=== PATIENT | male | born 1950 | race Caucasian/White ===

== ENCOUNTER 2023-04-13 11:18 | Inpatient (IN) ==
[2023-04-13] MEDS ORDERED: IOPAMIDOL 100 ML BOTTLE IV ONE (11:19)
[2023-04-13] MEDS ORDERED: 0.9 % SODIUM CHLORIDE 1,000 ML IV ONE ×2 (11:42→13:39)
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
[2023-04-13 12:19] LABS: POC Calcium, Ionized 1.24 (1.16-1.32); POC Creatinine 0.7 (0.6-1.2); POC Potassium 4.4 (3.3-5.1)
[2023-04-13 13:18] LABS: Basophils # (Auto) 0.03 K/mcL (0.00-0.30); Basophils % (Auto) 0.2 % (0.0-2.0); Eosinophils # (Auto) 0.01 K/mcL (0.00-0.70); Eosinophils % (Auto) 0.1 % (0.0-7.0); Hematocrit 30.9 % (40.1-51.0); Hemoglobin 9.6 g/dL (13.7-17.5); Lymphocytes # (Auto) 0.47 K/mcL (1.50-4.80); Lymphocytes % (Auto) 3.4 % (15.5-49.0); Mean Cell Volume 81.7 fL (80.0-100.0); Mean Corpuscular HGB Conc 31.1 g/dL (31.0-36.0); Mean Platelet Volume 11.1 fL (8.8-12.5); Monocytes # (Auto) 0.45 K/mcL (0.10-0.90); Monocytes % (Auto) 3.3 % (1.0-12.0); Neutrophils % (Auto) 91.9 % (38.0-78.0); Platelet Count 350 K/mcL (140-440); RBC 3.78 M/mcL (4.63-6.08); WBC 13.8 K/mcL (4.5-11.0)
[2023-04-13 13:27] LABS: Erythrocyte Sedimentation Rate 89 mm/hr (0-20)
--- NOTE | 2023-04-13 14:52 | Cat Scan Report ---
INDICATION: sacral wound with maggots r/o osteo/abscess COMPARISON: None. TECHNIQUE: Axial images were obtained through the pelvis. Sagittally and coronally reformatted images. 80ml Isovue 370 injected intravenously. Oral contrast material was not administered FINDINGS: There is a large soft tissue wound in the inferior left gluteal region. There is exposed left ischium. There is bone destruction and extensive sclerosis. There is periosteal new bone formation. Appearance is consistent with osteomyelitis. There are gas bubbles within the soft tissues. There is gas which tracks posteriorly toward the left thigh. Findings are consistent with gas gangrene. There are thickened soft tissues in the left side of the perineum extending to the base of the scrotum. There is a left hip joint effusion. Septic left hip is possible. There is no acetabular or femoral head destruction. Sacrum is negative. Right hemipelvis is negative. There is no intrapelvic abnormality. There is no free fluid. No intrapelvic abscess. Urinary bladder is not distended. There is diffuse wall thickening. A discrete mass is not identified. There is a small gas bubble within the urinary bladder lumen. If this patient has not been instrumented cystitis with gas-forming organism is possible. There is no adjacent colon to suggest colovesical fistula. IMPRESSION: 1. Large open left inferior gluteal wound 2. Exposed ischium with bone destruction, periosteal new bone formation, and extensive sclerosis. Appearance is consistent with osteomyelitis 3. Soft tissue gas bubbles in the inferior gluteal region and posterior thigh. Appearance is consistent gas gangrene. 4. No well-defined abscess 5. Fluid within the left hip joint space. Septic joint is possible. There is no bone destruction 6. Diffusely thickened bladder wall. No discrete mass. Single intraluminal gas bubble 7. Thickened soft tissues in the perineum and base of the scrotum. No soft tissue gas The exam was performed using radiation dose optimization techniques including, but not limited to, automated exposure control, adjustment of the mA and/or kV according to patient size and use of iterative reconstruction technique. Interpreted and Authenticated by: Bill Workman 04/13/23
[2023-04-13] MEDS ORDERED: VANCOMYCIN 1,000 MG in 0.9 % SODIUM CHLORIDE 250 ML IV ONE (16:58)
[2023-04-13] MEDS ORDERED: PIPERACILLIN SODIUM/TAZOBACTAM 3.375 GM in DEXTROSE 5% IN WATER 50 ML IV ONE (16:58)
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
[2023-04-13] MEDS ORDERED: PIPERACILLIN SODIUM/TAZOBACTAM 3.375 GM in DEXTROSE 5% IN WATER 50 ML IV SCH (19:30)
--- NOTE | 2023-04-13 20:03 | General Surgery Consult Note ---
HPI Date of Consult Consult Date: 04/13/23 Requesting physician: Chapis Hinson Primary Care Provider: Bonnie Carbajal NP Consult Narrative Patient Information: Note initiated : 04/13/23 at 8:02 pm Service Date, if different from initiated Date: [] Patient: Chay Cole 73 y/o M admitted on for buttox wound. Chief Complaint: [] Chay is seen in consultation this afternoon after presenting to the ER feeling poorly and with concerns about a neglected and possibly infected Sacrococcygeal Wound. He has a mid thoracic paraplegia and has undergone Bilateral Lower Extremity Amputation. He currently lives in his own domicile with some form of home health visitation. He has had a longstanding Sacrococcygeal Decubitus Pressure Ulceration and has undergone past Diverting Colostomy. He was seen in the wound clinic this past week regarding the wound. On presentation today, his wound appeared neglected with both foul odor and drainage and there is longstanding exposed bone. On CT of the area, there was evidence of Osteomyelitis and concern about air bubbles seen deeper in the wound. His WBC is elevated and he has felt poorly. He is insensate in the area. Chief complaint: Sacrococcygeal Decubitus Ulceration Reason for consult: Infected Sacrococcygeal Decubitus Ulceration cc:: CC: Constitutional Additional comments: has not felt well recently EENT Additional comments: no recent change Additional comments: no recent ENT changes Cardiovascular Additional comments: no chest pain Respiratory Additional comments: denies current SOB or cough Gastrointestinal Additional comments: ostomy has been functional, no new issues Genitourinary Additional comments: no changes - wears depends, does not have indwelling shen or suprapubic at this time Integumentary Additional comments: see HPI Neurological Additional comments: no changes Hematologic/Lymphatic Additional comments: currently on Eliquis PFSH PFSH All Active Problems Cough (Acute) Decubitus ulcer of left ischial area (Acute) Social History smoking status: Never smoker MEDS/ALLERGIES Home Medications and Allergies Home Medications Medication Instructions Recorded Confirmed Type apixaban 5 mg tablet (Eliquis) 5 mg PO BID 04/09/23 04/13/23 History diazepam 5 mg tablet 5 mg PO Q6 04/09/23 04/13/23 History doxycycline hyclate 100 mg capsule 100 mg PO BID 7 days #14 caps 04/09/23 04/13/23 Rx losartan 25 mg tablet 12.5 mg PO QDAY 04/09/23 04/13/23 History metformin 500 mg tablet 250 mg PO BID 04/09/23 04/13/23 History metoprolol succinate 25 mg 25 mg PO QDAY 04/09/23 04/13/23 History tablet,extended release 24 hr ondansetron HCl 4 mg tablet 4 mg PO PRN PRN Nausea 04/09/23 04/13/23 History Adults Multivitamin 1 tab .Route DAILY 04/13/23 04/13/23 History thiamine HCl (vitamin B1) 100 mg 100 mg PO QDAY 04/13/23 04/13/23 History tablet Allergies Allergy/AdvReac Type Severity Reaction Status Date / Time bacitracin Allergy Severe Anaphylaxis Verified 04/13/23 11:19 Physical Examination Vital Signs Vital signs: Temp Pulse Resp BP Pulse Ox O2 Del Method 97.9 F 84 17 82/57 97 Room Air 04/13/23 11:19 04/13/23 16:16 04/13/23 19:48 04/13/23 19:48 04/13/23 16:16 04/13/23 11:19 General physical appearance General physical exam: other (fully conversant and alert, appears non toxic ) Eyes Eye exam: normal ocular movement Head Head exam IM: Present atraumatic, normal inspection and normocephalic Cardiovascular Cardiovascular exam IM: Present RRR Respiratory Respiratory exam: normal respiratory effort Abdomen Abdomen: Present soft and non tender Rectum Rectum: Present other (the area of left ischial ulceration is examined and an abscess is drained bluntly with digital evacuation and packing of the corresponding area seen on CT and the area is packed open with damp gauze ) Integumentary Integumentary: Present other (normal appearing intact skin ) Neurologic Neurologic: Present other (grossly intact ) Results Labs 04/13/23 12:08 Labs: Abnormal lab results 04/13/23 04/13/23 04/13/23 Range/Units 12:08 12:08 12:08 WBC 13.8 H (4.5-11.0) K/mcL RBC 3.78 L (4.63-6.08) M/mcL Hgb 9.6 L (13.7-17.5) g/dL Hct 30.9 L (40.1-51.0) % POC Hct (41-55) MCH 25.4 L (26.0-34.0) pg RDW 15.0 H (11.5-14.5) % Immature Gran % (Auto) 1.1 H (0.0-0.5) % Neut % (Auto) 91.9 H (38.0-78.0) % Lymph % (Auto) 3.4 L (15.5-49.0) % Lymph # (Auto) 0.47 L (1.50-4.80) K/mcL Immature Gran # 0.15 H (0.00-0.05) K/mcl Absolute Neutrophils 12.69 H (1.80-8.00) K/mcL ESR 89 H (0-20) mm/hr POC VBG pH (7.32-7.42) POC VBG pCO2 at Temp (41-51) POC Sodium (133-145) POC Chloride (96-108) POC Anion Gap (8.0-16.0) POC BUN (6-20) POC Glucose (70-105) C-Reactive Protein 23.60 H (0.03-0.80) mg/dL Procalcitonin 0.34 H (<0.10) ng/mL 04/13/23 04/13/23 Range/Units 12:11 12:14 WBC (4.5-11.0) K/mcL RBC (4.63-6.08) M/mcL Hgb (13.7-17.5) g/dL Hct (40.1-51.0) % POC Hct 30.0 L (41-55) MCH (26.0-34.0) pg RDW (11.5-14.5) % Immature Gran % (Auto) (0.0-0.5) % Neut % (Auto) (38.0-78.0) % Lymph % (Auto) (15.5-49.0) % Lymph # (Auto) (1.50-4.80) K/mcL Immature Gran # (0.00-0.05) K/mcl Absolute Neutrophils (1.80-8.00) K/mcL ESR (0-20) mm/hr POC VBG pH 7.45 H (7.32-7.42) POC VBG pCO2 at Temp 36.5 L (41-51) POC Sodium 129 L (133-145) POC Chloride 94 L (96-108) POC Anion Gap 17.0 H (8.0-16.0) POC BUN 31 H (6-20) POC Glucose 305 H (70-105) C-Reactive Protein (0.03-0.80) mg/dL Procalcitonin (<0.10) ng/mL All other labs normal. A/P Assessment and plan (1) Decubitus ulcer of left ischial area: Assessment and plan: Neglected Pressure Ulceration of the Sacrococcygeal Ischial The wound will benefit from Open Debridement in the OR and we'll plan on that for him tomorrow AM, sooner if need be for any reason. Risks, benefits, potential complications and alternative treatment options are all discussed and reviewed at length I don't strongly suspect gangrene despite CT findigns as I was able to follow an open tract down to an abscess in that area and that almost certainly the source of air/gas in the area and abscess was evacuated and the wound packed open but agree with need for wound debridement Recommend broad spectrum IV ABs along with aggressive fluid resuscitation as well and hold Eliquis for surgery tomorrow Status: Acute Time Spent With Patient Time: Total time spent is greater than 50% in coordination of care (as documented) at patient's floor/unit and/or counseling patient:
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
[2023-04-13] MEDS ORDERED: DEXTROSE 50% 50 ML VIAL IV PRN (21:46)
[2023-04-13] MEDS ORDERED: LACTULOSE 20 GM/30 ML ORAL.SOL PO PRN (21:46)
[2023-04-13] MEDS ORDERED: HYDROcodone/APAP 5/325MG TABLET PO PRN (21:46)
[2023-04-13] MEDS ORDERED: SENNOSIDES 1 TABLET PO PRN (21:46)
[2023-04-13] MEDS ORDERED: ONDANSETRON 4 MG/2 ML VIAL IV PRN (21:46)
[2023-04-13] MEDS ORDERED: ACETAMINOPHEN 325 MG TABLET PO PRN (21:46)
[2023-04-13] MEDS: 0.9 % SODIUM CHLORIDE 10 ML SYRINGE IV SCH (22:00)
[2023-04-13] MEDS ORDERED: VANCOMYCIN 500 MG in 0.9 % SODIUM CHLORIDE 100 ML IV ONE (22:00)
[2023-04-13 22:20] LABS: ALT/SGPT 63 U/L (<40); AST/SGOT 49 U/L (<40); Albumin 2.3 gm/dL (3.2-5.2); Albumin/Globulin Ratio 0.6 (1.0-2.3); Alkaline Phosphatase 84 U/L (39-117); Bilirubin,Total 0.7 mg/dL (0.1-1.0); Blood Urea Nitrogen 26 mg/dL (8-23); Calcium 9.7 mg/dL (8.6-10.4); Carbon Dioxide 19 mmol/L (22-30); Chloride 93 mmol/L (96-108); Globulin 4.1 gm/dL (2.2-3.7); Glomerular Filtration Rate 90; Glucose 292 mg/dL (70-105)
[2023-04-13 22:37] LABS: Estimated Average Glucose(eAG) 157 mg/dL; Hemoglobin A1C 7.1 % Hgb (4.0-6.0)
[2023-04-13] MEDS: DOCUSATE SODIUM 100 MG CAPSULE PO SCH (23:25)
[2023-04-14] MEDS: CLINDAMYCIN IN 0.9 % SOD CHLOR 900 MG/50 ML BAG IV SCH ×2 (00:07→05:03)
[2023-04-14] MEDS: INSULIN LISPRO 1 UNIT/0.01 ML UNIT SQ SCH ×4 (00:32→18:07)
[2023-04-14] MEDS: LACTATED RINGERS 1,000 ML IV SCH ×3 (01:09→17:22)
[2023-04-14] MEDS: PIPERACILLIN SODIUM/TAZOBACTAM 3.375 GM in DEXTROSE 5% IN WATER 50 ML IV SCH ×4 (02:42→17:22)
[2023-04-14] MEDS: 0.9 % SODIUM CHLORIDE 10 ML SYRINGE IV SCH ×3 (06:07→21:00)
--- NOTE | 2023-04-14 06:33 | XRay Report ---
INDICATION: cough TECHNIQUE: AP portable upright chest x-ray COMPARISON: Previous chest x-ray dated 04/09/2023 FINDINGS:There is a linear lucency at the left lung base. This appears to be artifactual and not related to pneumothorax. Lungs:Lungs are negative. No focal pulmonary parenchymal infiltrate or mass Heart, vascular:No significant cardiomegaly. Pulmonary vascularity is normal. No pulmonary edema or pulmonary congestion Mediastinum, deja:No mediastinal widening. No hilar mass Pleura:No pleural fluid. No pleural-based mass or calcification Skeletal:Degenerative joint disease in both shoulders IMPRESSION: No acute or focal abnormality Interpreted and Authenticated by: Bill Workman 04/14/23
[2023-04-14] MEDS ORDERED: NOREPINEPHRINE BITARTRATE 4 MG/4 ML VIAL IV ONE (07:10)
[2023-04-14 07:24] LABS: Basophils # (Auto) 0.01 K/mcL (0.00-0.30); Basophils % (Auto) 0.1 % (0.0-2.0); Eosinophils # (Auto) 0.06 K/mcL (0.00-0.70); Eosinophils % (Auto) 0.7 % (0.0-7.0); Hematocrit 28.9 % (40.1-51.0); Hemoglobin 8.9 g/dL (13.7-17.5); Lymphocytes # (Auto) 0.34 K/mcL (1.50-4.80); Mean Cell Volume 82.1 fL (80.0-100.0); Mean Corpuscular HGB Conc 30.8 g/dL (31.0-36.0); Mean Platelet Volume 10.6 fL (8.8-12.5); Monocytes % (Auto) 3.6 % (1.0-12.0); Neutrophils % (Auto) 90.6 % (38.0-78.0); Platelet Count 402 K/mcL (140-440); RBC 3.52 M/mcL (4.63-6.08); Red Cell Distribution Width 15.3 % (11.5-14.5); WBC 8.4 K/mcL (4.5-11.0)
[2023-04-14] MEDS ORDERED: GENTAMICIN SULFATE 800 MG/20 ML VIAL IR ONE (07:27)
[2023-04-14] MEDS ORDERED: SUGAMMADEX SODIUM 200 MG/2 ML VIAL IV ONE (07:37)
[2023-04-14] MEDS ORDERED: PROPOFOL 200 MG/20 ML VIAL IV ONE (07:37)
[2023-04-14] MEDS ORDERED: ROCURONIUM 10 MG/ML ML IV ONE (07:37)
[2023-04-14] MEDS ORDERED: PHENYLephrine 1 MG/10 ML SYRINGE (ANEST) ONE (07:37)
[2023-04-14 08:00] LABS: ALT/SGPT 46 U/L (<40); AST/SGOT 37 U/L (<40); Albumin 1.9 gm/dL (3.2-5.2); Albumin/Globulin Ratio 0.5 (1.0-2.3); Alkaline Phosphatase 72 U/L (39-117); Bilirubin,Total 0.4 mg/dL (0.1-1.0); Blood Urea Nitrogen 19 mg/dL (8-23); Calcium 8.5 mg/dL (8.6-10.4); Carbon Dioxide 20 mmol/L (22-30); Chloride 99 mmol/L (96-108); Globulin 3.7 gm/dL (2.2-3.7); Glomerular Filtration Rate 101; Glucose 195 mg/dL (70-105)
[2023-04-14] MEDS ORDERED: VANCOMYCIN 1,000 MG in 0.9 % SODIUM CHLORIDE 250 ML IV ONE (08:00)
--- NOTE | 2023-04-14 08:16 | XRay Report ---
INDICATION: bilateral hip septic joint TECHNIQUE: Informed consent was obtained. Bilateral hip aspirations performed using fluoroscopic guidance. 53 seconds fluoroscopy and 10.69 mGy exposure utilized. Betadine skin cleansing performed. 18-gauge spinal needles were placed within the hip joint spaces. Approximately 5 mL cloudy yellow fluid was removed from the right hip joint space. Approximately 5 mL blood fluid or shelley blood was removed from the left hip joint space. Both specimens were taken to the laboratory. IMPRESSION: Aspiration of both hip joint spaces utilizing fluoroscopic guidance Interpreted and Authenticated by: Bill Workman 04/14/23
[2023-04-14] MEDS ORDERED: VANCOMYCIN PER PHARMACY IV SCH (09:00)
[2023-04-14] MEDS ORDERED: IPRATROPIUM/ALBUTEROL 3 ML AMPUL.NEB NEB PRN (09:45)
[2023-04-14] MEDS ORDERED: ONDANSETRON 4 MG/2 ML VIAL IV PRN (09:45)
[2023-04-14] MEDS ORDERED: fentaNYL 100 MCG/2 ML VIAL IV PRN (09:45)
[2023-04-14] MEDS ORDERED: NALOXONE HCL 0.4 MG/ML VIAL IV PRN (09:45)
--- NOTE | 2023-04-14 10:05 | XRay Report ---
INDICATION: Central Line Placement TECHNIQUE: AP chest x-ray COMPARISON: Previous chest x-ray dated 04/13/2023 FINDINGS:Right-sided central venous catheter with its tip projected over the right lung apex. Anatomic location is not determined based upon this single view chest x-ray. No pneumothorax. No focal pulmonary parenchymal abnormality. No evidence for congestive heart failure IMPRESSION: Right central venous catheter tip is projected over the right lung apex. Anatomic location is not certain Interpreted and Authenticated by: Bill Workman 04/14/23
[2023-04-14] MEDS: CLINDAMYCIN 900 MG in DEXTROSE 5% IN WATER 50 ML IV SCH ×2 (11:08→17:22)
[2023-04-14] MEDS: VANCOMYCIN 1,000 MG in 0.9 % SODIUM CHLORIDE 250 ML IV SCH ×2 (11:08→22:00)
[2023-04-14] MEDS: METOPROLOL SUCCINATE 25 MG TAB.XL.24H PO SCH (11:09)
[2023-04-14] MEDS: DOCUSATE SODIUM 100 MG CAPSULE PO SCH ×2 (11:10→21:55)
[2023-04-14] MEDS: THIAMINE 100 MG TABLET PO SCH (11:11)
[2023-04-14 12:09] LABS: Crystals,Body Fluid None Seen (None Seen)
[2023-04-14 12:12] LABS: Appearance,Synovial Fluid Cloudy; Color,Synovial Fluid Yellow; Lymphocytes,Synovial Fluid 5 %; Neutrophils,Synovial Fluid 94 % (0-25); Nucleated Cells,Synovial Fld 201 /cumm; Other Cells,Synovial Fluid 1 %
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
[2023-04-14] MEDS ORDERED: ALBUMIN HUMAN 12.5 GM/50 ML VIAL IV SCH (14:33)
[2023-04-14] MEDS ORDERED: LACTATED RINGERS 500 ML IV ONE (14:34)
[2023-04-14] MEDS ORDERED: MAGNESIUM HYDROXIDE 30 ML ORAL.SUSP PO PRN (19:26)
--- NOTE | 2023-04-14 19:26 | Brief Operative Note ---
Brief Operative Note Date of procedure: 04/14/23 Pre-op diagnosis: Infected Left Sacro Ischial Pressure Ulceration Post-op diagnosis: same Procedure: Examination Under Anesthesia with Drainage and Debridement of Left Infected Sacro Ischial Pressure Ulceration Grafts/Implants: No Anesthesia: GETA Findings: Moderate infection and Necrotic debris of Infected Left Sacro Ischial Pressure Ulceration Complications: none Surgeon: Sim Whiteside Estimated blood loss (cc): 25 Specimens Removed/Pathology: other (1. Swabs for Gram Stain and Culture 2. Tissue sent for Gram Stain and Culture ) Condition: stable Disposition: PACU
[2023-04-14] MEDS: POLYETHYLENE GLYCOL 3350 17 GM PACKET PO SCH (21:55)
[2023-04-14] MEDS: MELATONIN 3 MG TABLET PO SCH (21:56)
[2023-04-14] MEDS: DIAZEPAM 5 MG TABLET PO PRN (21:56)
[2023-04-15] MEDS: INSULIN LISPRO 1 UNIT/0.01 ML UNIT SQ SCH ×4 (00:48→18:23)
[2023-04-15] MEDS: CLINDAMYCIN 900 MG in DEXTROSE 5% IN WATER 50 ML IV SCH ×4 (00:50→18:12)
[2023-04-15] MEDS: PIPERACILLIN SODIUM/TAZOBACTAM 3.375 GM in DEXTROSE 5% IN WATER 50 ML IV SCH ×4 (00:50→18:12)
[2023-04-15] MEDS: LACTATED RINGERS 1,000 ML IV SCH ×2 (02:05→06:40)
[2023-04-15 06:46] LABS: Basophils # (Auto) 0.02 K/mcL (0.00-0.30); Basophils % (Auto) 0.2 % (0.0-2.0); Eosinophils # (Auto) 0.14 K/mcL (0.00-0.70); Eosinophils % (Auto) 1.4 % (0.0-7.0); Hematocrit 27.7 % (40.1-51.0); Hemoglobin 8.4 g/dL (13.7-17.5); Lymphocytes # (Auto) 0.87 K/mcL (1.50-4.80); Lymphocytes % (Auto) 8.7 % (15.5-49.0); Mean Cell Volume 83.2 fL (80.0-100.0); Mean Corpuscular HGB Conc 30.3 g/dL (31.0-36.0); Mean Platelet Volume 10.4 fL (8.8-12.5); Monocytes # (Auto) 0.69 K/mcL (0.10-0.90); Monocytes % (Auto) 6.9 % (1.0-12.0); Neutrophils % (Auto) 81.7 % (38.0-78.0); Platelet Count 383 K/mcL (140-440); RBC 3.33 M/mcL (4.63-6.08); Red Cell Distribution Width 15.6 % (11.5-14.5)
[2023-04-15 07:11] LABS: ALT/SGPT 33 U/L (<40); AST/SGOT 30 U/L (<40); Albumin 1.9 gm/dL (3.2-5.2); Albumin/Globulin Ratio 0.6 (1.0-2.3); Alkaline Phosphatase 59 U/L (39-117); Bilirubin,Direct < 0.2 mg/dL (0-0.3); Bilirubin,Total 0.2 mg/dL (0.1-1.0); Blood Urea Nitrogen 11 mg/dL (8-23); Calcium 7.9 mg/dL (8.6-10.4); Carbon Dioxide 23 mmol/L (22-30); Chloride 101 mmol/L (96-108); Glomerular Filtration Rate 101; Glucose 177 mg/dL (70-105); Lactate Dehydrogenase 173 U/L (135-225); Phosphorous 3.1 mg/dL (2.5-4.5); Triglycerides 58 mg/dL (<150); Uric Acid 2.7 mg/dL (2.5-8.0)
--- NOTE | 2023-04-15 08:06 | EKG ---
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 Measurements Intervals [place] Rate: 72 P: 118 VA: 116 QRS: 6 QRSD: 82 T: 38 QT: 424 QTc: 463 Interpretive Statements Sinus rhythm Atrial premature complex Electronically Signed On 04-15-2023 8:06:49 PDT by Bill Chandler M.D. /store/[email or web address]/[id number].pdf
[2023-04-15] MEDS ORDERED: MAGNESIUM SULFATE 2 GM/50 ML BAG IV ONE (08:10)
--- NOTE | 2023-04-15 08:10 | History and Physical Report ---
DATE OF ADMISSION: 04/13/2023 CHIEF COMPLAINT: Left infected decubitus pressure ulcer over the buttocks and ischium. HISTORY OF PRESENT ILLNESS: The patient is a previous bilateral amputee who has also had a history of a paraplegia. The patient recently moved to the area from [place] after not feeling like he had good care at his nursing facility. He was living at home when a neighbor, who does help take care of him, noticed that he had maggots coming from his decubitus pressure ulcer. He was brought to the ED. The patient has no other complaints at this time. He was previously taken to the OR by General Surgery for wound debridement and cleaning. Orthopedics was consulted for left hip fluid found on CT. PAST SURGICAL HISTORY: Bilateral [id number] amputations. He also has undergone debridement for his decubitus pressure ulcer. VITAL SIGNS: Blood pressure 111/63, respiratory rate 37, heart rate 80, pulse rate 82 and pulse ox 98. PHYSICAL EXAMINATION: GENERAL: The patient is alert. He is in no acute distress. HEART: Regular. LUNGS: He does have some wheezing noted on auscultation. LOWER EXTREMITIES: Left lower extremity does show a previous [id number] amputation. The movement passively to the area does not increase pain. He has no sensation to the lower extremities. LABORATORY DATA: Currently, synovial fluid testing of the left hip joint neutrophil count is 94 indicating no infection at this time. RADIOLOGIC STUDIES: CT scan did show an increased amount of fluid in the hip joint. IMPRESSION: A decubitus pressure ulcer in a patient who had, so far, an incidental finding of increased fluid on the left hip joint. PLAN: At this time, Orthopedics will watch for continued testing from the synovial fluid from the hip joint drawn by Interventional Radiology. At this time, the cell count is negative, but we will wait for stains and cultures. If this does prove to be positive, the patient may require a left hip I and D for further treatment. The patient also may require this in the right hip as this was tested as well. The patient was agreeable to this plan. IRMA:randa Job ID: [id number] Doc ID: [id number] Lefty Villalobos PA-C
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
[2023-04-15] MEDS: DOCUSATE SODIUM 100 MG CAPSULE PO SCH ×2 (08:35→21:26)
[2023-04-15] MEDS: THIAMINE 100 MG TABLET PO SCH (08:35)
[2023-04-15] MEDS: APIXABAN 5 MG TABLET PO SCH ×2 (08:35→20:00)
[2023-04-15] MEDS: POLYETHYLENE GLYCOL 3350 17 GM PACKET PO SCH ×2 (08:36→19:05)
[2023-04-15] MEDS: METOPROLOL SUCCINATE 25 MG TAB.XL.24H PO SCH (10:06)
[2023-04-15] MEDS: 0.9 % SODIUM CHLORIDE 10 ML SYRINGE IV SCH ×2 (10:07→20:00)
[2023-04-15] MEDS: VANCOMYCIN 1,000 MG in 0.9 % SODIUM CHLORIDE 250 ML IV SCH ×2 (10:57→21:26)
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
[2023-04-15] MEDS: MELATONIN 3 MG TABLET PO SCH (20:01)
[2023-04-15] MEDS: DIAZEPAM 5 MG TABLET PO PRN (20:01)
--- NOTE | 2023-04-15 23:49 | General Surgery Progress Note ---
SUBJECTIVE Subjective Patient information: Note initiated : 04/15/23 at 11:45 am Service Date, if different from initiated Date: [] Patient: Chay Cole 73 y/o M admitted on 04/13/23 for buttox wound. Chief Complaint: [] Dressings in place, no significant issues with bleeding or other concerns Constitutional Vitals: Vital Signs Temp Pulse Resp BP Pulse Ox O2 Del Method O2 Flow Rate 98.4 F 70 22 122/56 97 Nasal Cannula 1 04/15/23 16:00 04/15/23 14:01 04/15/23 16:00 04/15/23 16:00 04/15/23 16:00 04/15/23 16:00 04/15/23 16:00 Period Temp Pulse Resp BP Sys/Palma Pulse Ox O2 Del Method O2 Flow Rate Last 24 Hr 98.4 F-100.5 F 70-98 21-38 82-141/44-76 95-99 Nasal Cannula- Nasal Cannula 1-2 Intake and Output 04/15/23 04/15/23 04/16/23 11:59 19:59 03:59 Intake Total 1464 912 Output Total 358 220 Balance 1106 692 Weight 173 lb 4.8 oz Patient Weight 04/16/23 03:59 Weight 173 lb 4.8 oz Intake & Output: Intake & Output 04/15/23 04/15/23 04/16/23 11:59 19:59 03:59 Intake Total 1464 912 Output Total 358 220 Balance 1106 692 Weight 173 lb 4.8 oz Intake: IV 1104 512 Cleocin 900 mg In Dextrose 5% 56 112 in Water 50 ml @ 100 mls/hr IV Q6H [facility] Rx#:[id number] Lactated Ringers 1,000 ml @ 75 998 mls/hr IV .[id number] [facility] Rx#: [id number] Zosyn 3.375 gm In Dextrose 5% 50 100 in Water 50 ml @ 100 mls/hr IV Q6H [facility] Rx#:[id number] Vancomycin 1,000 mg In Sodium 250 Chloride 0.9% 250 ml @ 250 mls/ hr IV Q12H [facility] Rx#:[id number] Oral 360 400 Output: Urine Catheter Amount 348 220 Stool 10 Other: Urine Appearance Clear Clear Urine Color Yellow Yellow Stool Size Small Stool Color Brown Stool Consistency Loose Exam: pleasantly conversant, non toxic, NAD Extremities Exam Additional comments: dressing in place, no active bleeding or other issue A/P Assessment and plan (1) Pressure ulcer: Assessment and plan: 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
[2023-04-16] MEDS: CLINDAMYCIN 900 MG in DEXTROSE 5% IN WATER 50 ML IV SCH ×4 (01:05→17:59)
[2023-04-16] MEDS: PIPERACILLIN SODIUM/TAZOBACTAM 3.375 GM in DEXTROSE 5% IN WATER 50 ML IV SCH ×5 (01:06→23:45)
[2023-04-16] MEDS: INSULIN LISPRO 1 UNIT/0.01 ML UNIT SQ SCH ×5 (01:08→20:54)
[2023-04-16] MEDS: DIAZEPAM 5 MG TABLET PO PRN ×2 (01:24→21:06)
[2023-04-16 06:36] LABS: Basophils # (Auto) 0.02 K/mcL (0.00-0.30); Basophils % (Auto) 0.2 % (0.0-2.0); Eosinophils # (Auto) 0.18 K/mcL (0.00-0.70); Eosinophils % (Auto) 1.8 % (0.0-7.0); Hematocrit 24.7 % (40.1-51.0); Hemoglobin 7.5 g/dL (13.7-17.5); Lymphocytes # (Auto) 0.92 K/mcL (1.50-4.80); Lymphocytes % (Auto) 9.2 % (15.5-49.0); Mean Cell Volume 83.2 fL (80.0-100.0); Mean Corpuscular HGB Conc 30.4 g/dL (31.0-36.0); Mean Platelet Volume 9.8 fL (8.8-12.5); Monocytes # (Auto) 0.68 K/mcL (0.10-0.90); Monocytes % (Auto) 6.8 % (1.0-12.0); Neutrophils % (Auto) 81.2 % (38.0-78.0); Platelet Count 326 K/mcL (140-440); RBC 2.97 M/mcL (4.63-6.08); Red Cell Distribution Width 15.7 % (11.5-14.5)
[2023-04-16 07:01] LABS: ALT/SGPT 25 U/L (<40); AST/SGOT 23 U/L (<40); Albumin 1.8 gm/dL (3.2-5.2); Albumin/Globulin Ratio 0.6 (1.0-2.3); Alkaline Phosphatase 58 U/L (39-117); Bilirubin,Direct < 0.2 mg/dL (0-0.3); Bilirubin,Total 0.2 mg/dL (0.1-1.0); Blood Urea Nitrogen 9 mg/dL (8-23); Calcium 8.3 mg/dL (8.6-10.4); Carbon Dioxide 26 mmol/L (22-30); Chloride 101 mmol/L (96-108); Glomerular Filtration Rate 95; Glucose 245 mg/dL (70-105); Lactate Dehydrogenase 98 U/L (135-225); Phosphorous 2.8 mg/dL (2.5-4.5); Triglycerides 58 mg/dL (<150); Uric Acid 2.2 mg/dL (2.5-8.0)
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
--- NOTE | 2023-04-16 08:16 | Operative Note ---
DATE OF OPERATION: 04/14/2023 DATE OF PROCEDURE: 04/14/2023 PREOPERATIVE DIAGNOSIS: Infected and necrotic sacroischial pressure ulceration. POSTOPERATIVE DIAGNOSIS: Infected and necrotic ischial, sacral ischial pressure ulceration. OPERATIVE PROCEDURE: 1. Examination under anesthesia. 2. Examination, debridement and washout of infected and necrotic sacroischial pressure ulceration. SURGEON: Sim Whiteside M.D. ANESTHESIA: General. POSITION: Prone. 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 He has had a longstanding exposed ischial tuberosity and ulceration and was brought into the Emergency Room on this admission with gross evidence of infection and evidence of perhaps some sepsis and gross contamination of the wound including maggots and feculent debris. We saw him in consultation and recommended proceeding to the operating room at some point for examination under anesthesia with debridement, washout, irrigation and hopefully ultimately placement of a VAC dressing. Risks, benefits, potential complications, and alternative treatment options were all discussed at length. He gave full informed consent and wished to undergo the procedure. DESCRIPTION OF PROCEDURE: The patient was taken to the OR and placed under general anesthesia and intubated. He was then placed in the prone position. All pressure sensitive areas were carefully padded by the entire OR team working together to position him comfortably and safely on the table. Once he was positioned properly, we then widely prepped and draped out the area of the obvious ulceration involving much of the left sacroischial region with exposed ischial tuberosity. Once the area was widely prepped and draped procedure, began with examination. He was found to have a substantial amount of tunneling in the posterior musculature of the left posterior upper leg and gluteal region down into the proximal thigh. We debrided extensive amounts of necrotic tissue and debris. Methods of debridement were cautery as well as utilization of a curette. After adequate debridement of all areas of necrotic debris and superficial slough, which I felt was actually only moderate, not as severe as initially feared, we then went ahead and utilized the pulse lavage to further cleanse the area. Once we felt that we had adequately debrided the area, We went ahead and debrided back the ischial tuberosity to healthy bleeding bony tissue as well in an effort to rid the area of superficial areas of osteomyelitis. Once this was complete, we then went ahead and unroofed the tract that was in the posterior musculature to further evacuate some additional necrotic debris out of this. Eventually, working over the course of roughly an hour or so, I felt that we performed a very extensive and thorough cleansing of the wound, trimmed away all visible necrotic tissue across the entire surface area, which was extensive and then packed the wound open with a Betadine-impregnated gauze and placed over dressings and this completed the procedure. PATHOLOGY: Culture swabs were sent x2 as well as a single tissue culture. FINDINGS: As discussed above. ESTIMATED BLOOD LOSS: 25-50 mL. DRAINS: None. WOUND STAGE: The stage of this pressure ulceration with exposed bone would be stage IV. METHOD OF DEBRIDEMENT: Utilization of both cautery and sharp debridement with a curette. COMPLICATIONS: None apparent. BW:randa Job ID: [id number] Doc ID: [id number] Sim Whiteside M.D.
[2023-04-16] MEDS: THIAMINE 100 MG TABLET PO SCH (09:20)
[2023-04-16] MEDS: APIXABAN 5 MG TABLET PO SCH ×2 (09:20→20:54)
[2023-04-16] MEDS: POLYETHYLENE GLYCOL 3350 17 GM PACKET PO SCH ×2 (09:20→20:54)
[2023-04-16] MEDS: 0.9 % SODIUM CHLORIDE 10 ML SYRINGE IV SCH ×2 (09:22→23:30)
[2023-04-16] MEDS: DOCUSATE SODIUM 100 MG CAPSULE PO SCH ×2 (09:22→20:48)
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
[2023-04-16] MEDS: METOPROLOL SUCCINATE 25 MG TAB.XL.24H PO SCH (11:10)
[2023-04-16] MEDS: VANCOMYCIN 1,000 MG in 0.9 % SODIUM CHLORIDE 250 ML IV SCH ×2 (12:14→22:21)
[2023-04-16] MEDS: 0.9 % SODIUM CHLORIDE 10 ML SYRINGE IV PRN ×3 (19:05→23:40)
[2023-04-16] MEDS: MELATONIN 3 MG TABLET PO SCH (20:54)
[2023-04-17] MEDS: CLINDAMYCIN 900 MG in DEXTROSE 5% IN WATER 50 ML IV SCH ×3 (00:12→10:55)
[2023-04-17] MEDS: 0.9 % SODIUM CHLORIDE 10 ML SYRINGE IV PRN ×2 (05:51→23:30)
[2023-04-17] MEDS: PIPERACILLIN SODIUM/TAZOBACTAM 3.375 GM in DEXTROSE 5% IN WATER 50 ML IV SCH ×4 (05:51→23:32)
[2023-04-17 06:57] LABS: Hematocrit 25.1 % (40.1-51.0); Hemoglobin 7.6 g/dL (13.7-17.5)
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
[2023-04-17] MEDS: INSULIN LISPRO 1 UNIT/0.01 ML UNIT SQ SCH ×4 (08:06→20:45)
[2023-04-17] MEDS: POLYETHYLENE GLYCOL 3350 17 GM PACKET PO SCH ×2 (08:52→20:45)
[2023-04-17] MEDS: THIAMINE 100 MG TABLET PO SCH (08:52)
[2023-04-17] MEDS: DOCUSATE SODIUM 100 MG CAPSULE PO SCH ×2 (08:52→20:35)
[2023-04-17] MEDS: APIXABAN 5 MG TABLET PO SCH ×2 (08:52→20:53)
[2023-04-17] MEDS: 0.9 % SODIUM CHLORIDE 10 ML SYRINGE IV SCH ×2 (08:52→22:12)
[2023-04-17] MEDS: METOPROLOL SUCCINATE 25 MG TAB.XL.24H PO SCH (08:53)
[2023-04-17] MEDS: DIAZEPAM 5 MG TABLET PO PRN ×2 (09:04→20:44)
[2023-04-17] MEDS: MULTIVIT,THER IRON,CA,FA & MIN 1 TABLET PO SCH (09:32)
[2023-04-17] MEDS: VANCOMYCIN 1,000 MG in 0.9 % SODIUM CHLORIDE 250 ML IV SCH ×2 (11:05→22:11)
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
--- NOTE | 2023-04-17 13:34 | Internal Med Progress Note ---
SUBJECTIVE Subjective Patient information: Note initiated : 04/17/23 at 1:32 pm Service Date, if different from initiated Date: [] Patient: Chay Cole 73 y/o M admitted on 04/13/23 for buttox wound. Chief Complaint: [] Principal diagnosis: Streptococcus bacteremia, Left buttock OM, Bilateral hip septic arthritis Constitutional Vitals: Vital Signs Temp Pulse Resp BP Pulse Ox O2 Del Method O2 Flow Rate 98 F 81 16 94/53 100 Room Air 0 04/17/23 13:28 04/17/23 12:00 04/17/23 12:00 04/17/23 10:00 04/17/23 12:00 04/17/23 10:00 04/16/23 04:02 Period Temp Pulse Resp BP Sys/Palma Pulse Ox O2 Del Method O2 Flow Rate Last 24 Hr 97.7 F-99.4 F 61-91 15-35 88-127/43-73 93-100 Room Air-Room Air Intake and Output 04/17/23 04/17/23 04/17/23 03:59 11:59 19:59 Intake Total 956 542 Output Total 1255 530 Balance -299 12 Weight 183 lb 14.4 oz Intake & Output: Intake & Output 04/17/23 04/17/23 04/17/23 03:59 11:59 19:59 Intake Total 956 542 Output Total 1255 530 Balance -299 12 Weight 183 lb 14.4 oz Intake: Nourishment/Supplement quantity 120 236 (ml) IV 356 106 Cleocin 900 mg In Dextrose 5% 56 56 in Water 50 ml @ 100 mls/hr IV Q6H [facility] Rx#:[id number] Zosyn 3.375 gm In Dextrose 5% 50 50 in Water 50 ml @ 100 mls/hr IV Q6H [facility] Rx#:[id number] Vancomycin 1,000 mg In Sodium 250 Chloride 0.9% 250 ml @ 250 mls/ hr IV Q12H [facility] Rx#:[id number] Oral 480 200 Output: Urine Catheter Amount 1035 330 Stool 220 200 Other: Meal Dinner Breakfast Percent of Meal Consumed 100% 75% Feeding Ability Independent Independent Nourishment/Supplement name Ensure Urine Appearance Clear Clear Uretheral (Lozano) Clear Urine Color Bright Yellow Yellow Uretheral (Lozano) Yellow Urine Odor Normal Stool Size Moderate Stool Color Brown Brown Stool Consistency Loose Liquid Loose Head Head exam: Present atraumatic and normocephalic Eye Eye exam: Present EOMI ENT ENT exam: Present mucous membranes moist Neck Additional comments: Right IJ central line Neurological Exam Neurological exam: Present alert and oriented X3 Additional comments: bedbound OBJ DATA Labs 04/17/23 05:48 04/16/23 05:53 Labs: Abnormal Lab Results 04/17/23 04/16/23 04/16/23 05:48 05:53 05:53 RBC 2.97 L Hgb 7.6 L 7.5 L Hct 25.1 L 24.7 L MCH 25.3 L MCHC 30.4 L RDW 15.7 H Immature Gran % (Auto) 0.8 H Neut % (Auto) 81.2 H Lymph % (Auto) 9.2 L Lymph # (Auto) 0.92 L Immature Gran # 0.08 H Absolute Neutrophils 8.14 H Anion Gap 6.0 L Creatinine Glucose 245 H Uric Acid 2.2 L Calcium 8.3 L Magnesium Lactate Dehydrogenase 98 L Total Protein 4.8 L Albumin 1.8 L Albumin/Globulin Ratio 0.6 L 04/15/23 04/15/23 05:26 05:26 RBC 3.33 L Hgb 8.4 L Hct 27.7 L MCH 25.2 L MCHC 30.3 L RDW 15.6 H Immature Gran % (Auto) 1.1 H Neut % (Auto) 81.7 H Lymph % (Auto) 8.7 L Lymph # (Auto) 0.87 L Immature Gran # 0.11 H Absolute Neutrophils 8.14 H Anion Gap Creatinine 0.6 L Glucose 177 H Uric Acid Calcium 7.9 L Magnesium 1.4 L Lactate Dehydrogenase Total Protein 4.9 L Albumin 1.9 L Albumin/Globulin Ratio 0.6 L Meds: Medications Acetaminophen (Acetaminophen 325 Mg Tablet) 650 mg PO Q6HP PRN; Protocol PRN Reason: Per Pain Protocol/Fever > 101 Hydrocodone Bitart/Acetaminophen (Hydrocodone/Apap 5/325mg Tablet) 1 tab PO Q4HP PRN; Protocol PRN Reason: Per Pain Protocol Apixaban (Apixaban 5 Mg Tablet) 5 mg PO BID [facility] Last Admin: 04/17/23 08:52 Dose: 5 mg Dextrose (Dextrose 50% 50 Ml Vial) 0 ml IV UD PRN PRN Reason: Hypoglycemia Diagnostic Test (Pha) (Accu-Chek 1 Each Strip) 1 each FS ACHS [facility] Last Admin: 04/17/23 12:26 Dose: 1 each Diazepam (Diazepam 5 Mg Tablet) 5 mg PO Q6HP PRN PRN Reason: Anxiety Last Admin: 04/17/23 09:04 Dose: 5 mg Docusate Sodium (Docusate Sodium 100 Mg Capsule) 100 mg PO BID [facility] Last Admin: 04/17/23 08:52 Dose: Not Given Piperacillin Sod/Tazobactam (Sod 3.375 gm/ Dextrose) 50 mls @ 100 mls/hr IV Q6H [facility]; Protocol Last Admin: 04/17/23 11:05 Dose: 100 mls/hr Clindamycin Phosphate 900 mg/ (Dextrose) 56 mls @ 100 mls/hr IV Q6H [facility] Last Admin: 04/17/23 10:55 Dose: 100 mls/hr Vancomycin HCl 1,000 mg/ (Sodium Chloride) 250 mls @ 250 mls/hr IV Q12H [facility] Last Admin: 04/17/23 11:05 Dose: 250 mls/hr Insulin Human Lispro (Insulin Lispro 1 Unit/0.01 Ml Unit) 0 unit SQ [facility]; Protocol Last Admin: 04/17/23 12:26 Dose: 6 units Iron Carb/Multivit/[place]/Folic Acid (Multivit,Ther Iron,Ca,Fa & Min 1 Tablet) 1 tab PO DAILY [facility] Last Admin: 04/17/23 09:32 Dose: 1 tab Lactulose (Lactulose 20 Gm/30 Ml Oral.Nataly) 10 gm PO DAILYP PRN PRN Reason: Constipation Magnesium Hydroxide (Magnesium Hydroxide 30 Ml Oral.Susp) 15 ml PO Q6HP PRN PRN Reason: Constipation Melatonin (Melatonin 3 Mg Tablet) 9 mg PO QHS [facility] Last Admin: 04/16/23 20:54 Dose: 9 mg Metoprolol Succinate (Metoprolol Succinate 25 Mg Tab.Xl.24h) 25 mg PO QDAY [facility] Last Admin: 04/17/23 08:53 Dose: Not Given Ondansetron HCl (Ondansetron 4 Mg/2 Ml Vial) 4 mg IV Q4HP PRN; Protocol PRN Reason: Nausea And Vomiting Polyethylene Glycol (Polyethylene Glycol 3350 17 Gm Packet) 17 gm PO BID [facility] Last Admin: 04/17/23 08:52 Dose: 17 gm Senna (Sennosides 1 Tablet) 2 tab PO HSP PRN PRN Reason: Constipation Sodium Chloride (0.9 % Sodium Chloride 10 Ml Syringe) 10 ml IV UD PRN PRN Reason: FLUSH Last Admin: 04/17/23 05:51 Dose: 10 ml Sodium Chloride (0.9 % Sodium Chloride 10 Ml Syringe) 10 ml IV Q12 [facility] Last Admin: 04/17/23 08:52 Dose: 10 ml Thiamine HCl (Thiamine 100 Mg Tablet) 100 mg PO DAILY [facility] Last Admin: 04/17/23 08:52 Dose: 100 mg Vancomycin HCl (Vancomycin Per Pharmacy) 1 order IV UD [facility]; Protocol A/P Time Spent With Patient Time: Total time spent is greater than 50% in coordination of care (as documented) at patient's floor/unit and/or counseling patient: QUALITY VTE Deep Vein Thrombosis/Pulmonary Embolism Present on Admission: No
--- NOTE | 2023-04-17 14:25 | General Surgery Progress Note ---
SUBJECTIVE Subjective Patient information: Note initiated : 04/17/23 at 2:20 pm Service Date, if different from initiated Date: [] Patient: Chay Cole 73 y/o M admitted on 04/13/23 for buttox wound. Chief Complaint: [] Wound team currently changing dressing and examining the wound Principal diagnosis: Streptococcus bacteremia, Left buttock OM, Bilateral hip septic arthritis Constitutional Vitals: Vital Signs Temp Pulse Resp BP Pulse Ox O2 Del Method O2 Flow Rate 98 F 70 12 88/59 96 Room Air 0 04/17/23 13:28 04/17/23 14:01 04/17/23 14:01 04/17/23 14:01 04/17/23 14:00 04/17/23 10:00 04/16/23 04:02 Period Temp Pulse Resp BP Sys/Palma Pulse Ox O2 Del Method O2 Flow Rate Last 24 Hr 97.7 F-99.4 F 61-91 12-35 85-127/43-73 93-100 Room Air-Room Air Intake and Output 04/17/23 04/17/23 04/17/23 03:59 11:59 19:59 Intake Total 956 542 Output Total 1255 530 Balance -299 12 Weight 183 lb 14.4 oz Intake & Output: Intake & Output 04/17/23 04/17/23 04/17/23 03:59 11:59 19:59 Intake Total 956 542 Output Total 1255 530 Balance -299 12 Weight 183 lb 14.4 oz Intake: Nourishment/Supplement quantity 120 236 (ml) IV 356 106 Cleocin 900 mg In Dextrose 5% 56 56 in Water 50 ml @ 100 mls/hr IV Q6H [facility] Rx#:[id number] Zosyn 3.375 gm In Dextrose 5% 50 50 in Water 50 ml @ 100 mls/hr IV Q6H [facility] Rx#:[id number] Vancomycin 1,000 mg In Sodium 250 Chloride 0.9% 250 ml @ 250 mls/ hr IV Q12H [facility] Rx#:[id number] Oral 480 200 Output: Urine Catheter Amount 1035 330 Stool 220 200 Other: Meal Dinner Breakfast Percent of Meal Consumed 100% 75% Feeding Ability Independent Independent Nourishment/Supplement name Ensure Urine Appearance Clear Clear Uretheral (Lozano) Clear Clear Urine Color Bright Yellow Yellow Uretheral (Lozano) Yellow Yellow Urine Odor Normal Stool Size Moderate Stool Color Brown Brown Stool Consistency Loose Liquid Loose Exam: looks well, fully conversant Additional comments: the pressure ulceration looks very clean without odor, necrosis or evidence of infection A/P Assessment and plan (1) Pressure ulcer: Assessment and plan: Post Debridement and Washout of Sacral Ischial Pressure Ulceration Doing Well with current wound care and IV ABs Appreciate Wound Care Team input and involvement Recommend treatment for Osteo as planned followed by Wound VAC application We will sign off for now but happy to see in follow up or in any way we can be of assistance going forward in his care Status: Acute Time Spent With Patient Time: Total time spent is greater than 50% in coordination of care (as documented) at patient's floor/unit and/or counseling patient:
[2023-04-17] MEDS: MELATONIN 3 MG TABLET PO SCH (20:44)
[2023-04-18] MEDS: 0.9 % SODIUM CHLORIDE 10 ML SYRINGE IV PRN ×3 (00:07→05:57)
[2023-04-18] MEDS: PIPERACILLIN SODIUM/TAZOBACTAM 3.375 GM in DEXTROSE 5% IN WATER 50 ML IV SCH ×4 (05:24→23:55)
[2023-04-18 06:35] LABS: Hematocrit 26.4 % (40.1-51.0); Hemoglobin 7.9 g/dL (13.7-17.5)
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
[2023-04-18] MEDS: INSULIN LISPRO 1 UNIT/0.01 ML UNIT SQ SCH ×4 (08:22→21:04)
[2023-04-18] MEDS: METOPROLOL SUCCINATE 25 MG TAB.XL.24H PO SCH (08:23)
[2023-04-18] MEDS: MULTIVIT,THER IRON,CA,FA & MIN 1 TABLET PO SCH (08:23)
[2023-04-18] MEDS: DOCUSATE SODIUM 100 MG CAPSULE PO SCH ×2 (08:23→20:38)
[2023-04-18] MEDS: THIAMINE 100 MG TABLET PO SCH (08:23)
[2023-04-18] MEDS: APIXABAN 5 MG TABLET PO SCH ×2 (08:23→21:03)
[2023-04-18] MEDS: POLYETHYLENE GLYCOL 3350 17 GM PACKET PO SCH ×2 (08:23→21:05)
[2023-04-18] MEDS: DIAZEPAM 5 MG TABLET PO PRN ×2 (08:34→21:04)
[2023-04-18] MEDS: 0.9 % SODIUM CHLORIDE 10 ML SYRINGE IV SCH ×2 (12:38→21:05)
[2023-04-18] MEDS: MELATONIN 3 MG TABLET PO SCH (21:04)
[2023-04-19] MEDS: PIPERACILLIN SODIUM/TAZOBACTAM 3.375 GM in DEXTROSE 5% IN WATER 50 ML IV SCH (05:41)
[2023-04-19] MEDS ORDERED: 0.9 % SODIUM CHLORIDE 10 ML SYRINGE IV PRN (07:57)
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
[2023-04-19] MEDS: INSULIN LISPRO 1 UNIT/0.01 ML UNIT SQ SCH ×4 (08:12→20:53)
[2023-04-19] MEDS: DOCUSATE SODIUM 100 MG CAPSULE PO SCH ×2 (08:22→20:42)
[2023-04-19] MEDS: THIAMINE 100 MG TABLET PO SCH (08:22)
[2023-04-19] MEDS: METOPROLOL SUCCINATE 25 MG TAB.XL.24H PO SCH (08:22)
[2023-04-19] MEDS: POLYETHYLENE GLYCOL 3350 17 GM PACKET PO SCH ×3 (08:22→20:43)
[2023-04-19] MEDS: APIXABAN 5 MG TABLET PO SCH ×2 (08:22→20:54)
[2023-04-19] MEDS: MULTIVIT,THER IRON,CA,FA & MIN 1 TABLET PO SCH (08:22)
[2023-04-19] MEDS: DIAZEPAM 5 MG TABLET PO PRN ×2 (08:22→20:54)
[2023-04-19] MEDS ORDERED: ALTEPLASE 2 MG VIAL IV SCH (10:07)
[2023-04-19] MEDS: 0.9 % SODIUM CHLORIDE 10 ML SYRINGE IV SCH ×4 (10:09→20:56)
[2023-04-19] MEDS: MEROPENEM 1 GM in 0.9 % SODIUM CHLORIDE 50 ML IV SCH ×2 (12:35→21:51)
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
[2023-04-19] MEDS: MELATONIN 3 MG TABLET PO SCH (20:54)
[2023-04-20] MEDS: MEROPENEM 1 GM in 0.9 % SODIUM CHLORIDE 50 ML IV SCH ×3 (05:31→21:13)
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
[2023-04-20] MEDS: INSULIN LISPRO 1 UNIT/0.01 ML UNIT SQ SCH ×4 (08:31→21:13)
[2023-04-20] MEDS: POLYETHYLENE GLYCOL 3350 17 GM PACKET PO SCH ×3 (08:32→21:02)
[2023-04-20] MEDS: DIAZEPAM 5 MG TABLET PO PRN ×2 (08:32→21:12)
[2023-04-20] MEDS: MULTIVIT,THER IRON,CA,FA & MIN 1 TABLET PO SCH (08:32)
[2023-04-20] MEDS: APIXABAN 5 MG TABLET PO SCH ×2 (08:32→21:12)
[2023-04-20] MEDS: THIAMINE 100 MG TABLET PO SCH (08:32)
[2023-04-20] MEDS: METOPROLOL SUCCINATE 25 MG TAB.XL.24H PO SCH (08:33)
[2023-04-20] MEDS: 0.9 % SODIUM CHLORIDE 10 ML SYRINGE IV SCH ×4 (08:48→21:14)
[2023-04-20] MEDS: DOCUSATE SODIUM 100 MG CAPSULE PO SCH ×2 (08:48→21:01)
[2023-04-20] MEDS: MELATONIN 3 MG TABLET PO SCH (21:12)
[2023-04-21] MEDS: MEROPENEM 1 GM in 0.9 % SODIUM CHLORIDE 50 ML IV SCH ×3 (05:30→21:17)
[2023-04-21] MEDS: 0.9 % SODIUM CHLORIDE 10 ML SYRINGE IV SCH ×5 (05:32→21:17)
[2023-04-21] MEDS ORDERED: INSULIN GLARGINE, HUMAN 1 UNIT/0.01 ML SQ SCH (07:33)
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
[2023-04-21] MEDS: INSULIN LISPRO 1 UNIT/0.01 ML UNIT SQ SCH ×4 (08:21→21:15)
[2023-04-21] MEDS: DOCUSATE SODIUM 100 MG CAPSULE PO SCH ×2 (08:21→21:00)
[2023-04-21] MEDS: DIAZEPAM 5 MG TABLET PO PRN ×2 (08:22→21:16)
[2023-04-21] MEDS: APIXABAN 5 MG TABLET PO SCH ×2 (08:22→21:16)
[2023-04-21] MEDS: MULTIVIT,THER IRON,CA,FA & MIN 1 TABLET PO SCH (08:22)
[2023-04-21] MEDS: THIAMINE 100 MG TABLET PO SCH (08:22)
[2023-04-21] MEDS: metFORMIN 500 MG TABLET PO SCH ×2 (08:22→21:15)
[2023-04-21] MEDS: POLYETHYLENE GLYCOL 3350 17 GM PACKET PO SCH ×3 (08:26→21:01)
[2023-04-21] MEDS: METOPROLOL SUCCINATE 25 MG TAB.XL.24H PO SCH (08:26)
[2023-04-21] MEDS: MELATONIN 3 MG TABLET PO SCH (21:16)
[2023-04-22] MEDS: MEROPENEM 1 GM in 0.9 % SODIUM CHLORIDE 50 ML IV SCH ×3 (05:41→21:24)
[2023-04-22] MEDS: APIXABAN 5 MG TABLET PO SCH ×2 (08:22→20:35)
[2023-04-22] MEDS: metFORMIN 500 MG TABLET PO SCH ×2 (08:22→20:35)
[2023-04-22] MEDS: METOPROLOL SUCCINATE 25 MG TAB.XL.24H PO SCH (08:22)
[2023-04-22] MEDS: MULTIVIT,THER IRON,CA,FA & MIN 1 TABLET PO SCH (08:22)
[2023-04-22] MEDS: POLYETHYLENE GLYCOL 3350 17 GM PACKET PO SCH ×3 (08:22→20:10)
[2023-04-22] MEDS: INSULIN LISPRO 1 UNIT/0.01 ML UNIT SQ SCH ×4 (08:22→20:35)
[2023-04-22] MEDS: DOCUSATE SODIUM 100 MG CAPSULE PO SCH ×2 (08:22→20:09)
[2023-04-22] MEDS: THIAMINE 100 MG TABLET PO SCH (08:22)
[2023-04-22] MEDS: DIAZEPAM 5 MG TABLET PO PRN ×2 (08:31→20:35)
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
[2023-04-22] MEDS: 0.9 % SODIUM CHLORIDE 10 ML SYRINGE IV SCH ×5 (11:31→20:34)
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
[2023-04-22] MEDS ORDERED: 0.9 % SODIUM CHLORIDE 10 ML SYRINGE IV PRN (15:47)
[2023-04-22] MEDS: MELATONIN 3 MG TABLET PO SCH (20:35)
[2023-04-22] MEDS: 0.9 % SODIUM CHLORIDE 10 ML SYRINGE IV PRN (21:24)
[2023-04-23] MEDS: MEROPENEM 1 GM in 0.9 % SODIUM CHLORIDE 50 ML IV SCH ×3 (05:07→21:15)
[2023-04-23] MEDS: 0.9 % SODIUM CHLORIDE 10 ML SYRINGE IV SCH ×3 (08:09→11:29)
[2023-04-23] MEDS: INSULIN LISPRO 1 UNIT/0.01 ML UNIT SQ SCH ×4 (09:12→21:11)
[2023-04-23] MEDS: MULTIVIT,THER IRON,CA,FA & MIN 1 TABLET PO SCH (09:17)
[2023-04-23] MEDS: DOCUSATE SODIUM 100 MG CAPSULE PO SCH ×2 (09:17→21:04)
[2023-04-23] MEDS: METOPROLOL SUCCINATE 25 MG TAB.XL.24H PO SCH (09:17)
[2023-04-23] MEDS: metFORMIN 500 MG TABLET PO SCH ×2 (09:18→21:11)
[2023-04-23] MEDS: APIXABAN 5 MG TABLET PO SCH ×2 (09:18→21:13)
[2023-04-23] MEDS: THIAMINE 100 MG TABLET PO SCH (09:18)
[2023-04-23] MEDS: POLYETHYLENE GLYCOL 3350 17 GM PACKET PO SCH ×3 (09:19→21:05)
[2023-04-23] MEDS: DIAZEPAM 5 MG TABLET PO PRN (09:34)
[2023-04-23 09:39] LABS: Basophils # (Auto) 0.02 K/mcL (0.00-0.30); Basophils % (Auto) 0.3 % (0.0-2.0); Hemoglobin 8.8 g/dL (13.7-17.5); Lymphocytes # (Auto) 1.69 K/mcL (1.50-4.80); Lymphocytes % (Auto) 28.3 % (15.5-49.0); Mean Cell Volume 83.3 fL (80.0-100.0); Mean Corpuscular HGB Conc 30.3 g/dL (31.0-36.0); Mean Platelet Volume 9.9 fL (8.8-12.5); Monocytes # (Auto) 0.54 K/mcL (0.10-0.90); Neutrophils % (Auto) 57.1 % (38.0-78.0); Platelet Count 281 K/mcL (140-440); RBC 3.48 M/mcL (4.63-6.08); Red Cell Distribution Width 17.1 % (11.5-14.5)
[2023-04-23 10:02] LABS: ALT/SGPT 18 U/L (<40); AST/SGOT 25 U/L (<40); Albumin 2.5 gm/dL (3.2-5.2); Albumin/Globulin Ratio 0.7 (1.0-2.3); Alkaline Phosphatase 64 U/L (39-117); Bilirubin,Direct < 0.2 mg/dL (0-0.3); Bilirubin,Total 0.2 mg/dL (0.1-1.0); Blood Urea Nitrogen 30 mg/dL (8-23); Calcium 9.1 mg/dL (8.6-10.4); Carbon Dioxide 28 mmol/L (22-30); Chloride 102 mmol/L (96-108); Globulin 3.5 gm/dL (2.2-3.7); Glomerular Filtration Rate 109; Glucose 148 mg/dL (70-105); Lactate Dehydrogenase 126 U/L (135-225); Phosphorous 3.1 mg/dL (2.5-4.5); Triglycerides 93 mg/dL (<150)
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
--- NOTE | 2023-04-23 16:01 | XRay Report ---
HISTORY: PICC line insertion FINDINGS: The tip of the PICC line is located in the superior vena cava, above the right atrium. There is no pneumothorax or widening of the mediastinum. There is also an indwelling right internal jugular catheter with the tip overlying the head of the right clavicle. The lungs are clear. The heart size is normal. IMPRESSION: Well-positioned PICC line, inserted through the right arm into the superior vena cava Interpreted and Authenticated by: Red Chandler 04/23/23
[2023-04-23] MEDS: MELATONIN 3 MG TABLET PO SCH (21:10)
[2023-04-24] MEDS: MEROPENEM 1 GM in 0.9 % SODIUM CHLORIDE 50 ML IV SCH ×3 (05:16→21:08)
[2023-04-24] MEDS: INSULIN LISPRO 1 UNIT/0.01 ML UNIT SQ SCH ×4 (07:37→21:06)
[2023-04-24] MEDS: metFORMIN 500 MG TABLET PO SCH ×2 (08:28→21:06)
[2023-04-24] MEDS: DOCUSATE SODIUM 100 MG CAPSULE PO SCH ×2 (08:28→21:07)
[2023-04-24] MEDS: APIXABAN 5 MG TABLET PO SCH ×2 (08:28→21:06)
[2023-04-24] MEDS: THIAMINE 100 MG TABLET PO SCH (08:29)
[2023-04-24] MEDS: MULTIVIT,THER IRON,CA,FA & MIN 1 TABLET PO SCH (08:29)
[2023-04-24] MEDS: METOPROLOL SUCCINATE 25 MG TAB.XL.24H PO SCH (08:29)
[2023-04-24] MEDS: POLYETHYLENE GLYCOL 3350 17 GM PACKET PO SCH ×2 (08:29→21:09)
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
[2023-04-24] MEDS: MELATONIN 3 MG TABLET PO SCH (21:06)
[2023-04-25] MEDS: MEROPENEM 1 GM in 0.9 % SODIUM CHLORIDE 50 ML IV SCH ×3 (05:20→22:16)
[2023-04-25] MEDS: INSULIN LISPRO 1 UNIT/0.01 ML UNIT SQ SCH ×4 (08:00→21:17)
[2023-04-25] MEDS: THIAMINE 100 MG TABLET PO SCH (08:28)
[2023-04-25] MEDS: metFORMIN 500 MG TABLET PO SCH ×2 (08:28→21:17)
[2023-04-25] MEDS: DOCUSATE SODIUM 100 MG CAPSULE PO SCH ×2 (08:29→21:16)
[2023-04-25] MEDS: MULTIVIT,THER IRON,CA,FA & MIN 1 TABLET PO SCH (08:29)
[2023-04-25] MEDS: METOPROLOL SUCCINATE 25 MG TAB.XL.24H PO SCH (08:29)
[2023-04-25] MEDS: APIXABAN 5 MG TABLET PO SCH ×2 (08:29→21:17)
[2023-04-25] MEDS: POLYETHYLENE GLYCOL 3350 17 GM PACKET PO SCH ×3 (08:33→21:19)
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
[2023-04-25] MEDS ORDERED: ALTEPLASE 2 MG VIAL IV ONE (11:59)
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
[2023-04-25] MEDS: MELATONIN 3 MG TABLET PO SCH (21:18)
[2023-04-26] MEDS: MEROPENEM 1 GM in 0.9 % SODIUM CHLORIDE 50 ML IV SCH ×3 (05:46→22:19)
[2023-04-26] MEDS: INSULIN LISPRO 1 UNIT/0.01 ML UNIT SQ SCH ×4 (07:57→20:26)
[2023-04-26] MEDS: METOPROLOL SUCCINATE 25 MG TAB.XL.24H PO SCH (08:30)
[2023-04-26] MEDS: DOCUSATE SODIUM 100 MG CAPSULE PO SCH ×3 (08:32→20:28)
[2023-04-26] MEDS: POLYETHYLENE GLYCOL 3350 17 GM PACKET PO SCH ×3 (08:40→20:27)
[2023-04-26] MEDS: metFORMIN 500 MG TABLET PO SCH ×2 (08:40→20:26)
[2023-04-26] MEDS: APIXABAN 5 MG TABLET PO SCH ×2 (08:44→20:26)
[2023-04-26] MEDS: MULTIVIT,THER IRON,CA,FA & MIN 1 TABLET PO SCH (08:46)
[2023-04-26] MEDS: THIAMINE 100 MG TABLET PO SCH (08:46)
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
[2023-04-26] MEDS: MELATONIN 3 MG TABLET PO SCH (20:25)
[2023-04-27] MEDS: MEROPENEM 1 GM in 0.9 % SODIUM CHLORIDE 50 ML IV SCH ×3 (05:58→22:31)
[2023-04-27] MEDS: INSULIN LISPRO 1 UNIT/0.01 ML UNIT SQ SCH ×4 (07:45→20:25)
[2023-04-27] MEDS: POLYETHYLENE GLYCOL 3350 17 GM PACKET PO SCH ×3 (07:50→20:33)
[2023-04-27] MEDS: DOCUSATE SODIUM 100 MG CAPSULE PO SCH ×3 (07:50→20:31)
[2023-04-27] MEDS: APIXABAN 5 MG TABLET PO SCH ×2 (07:50→20:32)
[2023-04-27] MEDS: MULTIVIT,THER IRON,CA,FA & MIN 1 TABLET PO SCH (07:50)
[2023-04-27] MEDS: metFORMIN 500 MG TABLET PO SCH ×2 (07:50→20:32)
[2023-04-27] MEDS: THIAMINE 100 MG TABLET PO SCH (07:51)
[2023-04-27] MEDS: METOPROLOL SUCCINATE 25 MG TAB.XL.24H PO SCH (07:51)
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
[2023-04-27] MEDS: MELATONIN 3 MG TABLET PO SCH (20:32)
[2023-04-28] MEDS: MEROPENEM 1 GM in 0.9 % SODIUM CHLORIDE 50 ML IV SCH ×3 (05:47→22:11)
[2023-04-28] MEDS: POLYETHYLENE GLYCOL 3350 17 GM PACKET PO SCH ×3 (07:46→20:07)
[2023-04-28] MEDS: INSULIN LISPRO 1 UNIT/0.01 ML UNIT SQ SCH ×4 (07:47→21:01)
[2023-04-28] MEDS: metFORMIN 500 MG TABLET PO SCH ×2 (09:22→20:20)
[2023-04-28] MEDS: MULTIVIT,THER IRON,CA,FA & MIN 1 TABLET PO SCH (09:22)
[2023-04-28] MEDS: THIAMINE 100 MG TABLET PO SCH (09:22)
[2023-04-28] MEDS: METOPROLOL SUCCINATE 25 MG TAB.XL.24H PO SCH (09:22)
[2023-04-28] MEDS: APIXABAN 5 MG TABLET PO SCH ×2 (09:22→20:21)
[2023-04-28] MEDS: DOCUSATE SODIUM 100 MG CAPSULE PO SCH ×2 (09:23→20:21)
[2023-04-28] MEDS: DIAZEPAM 5 MG TABLET PO PRN (09:27)
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
[2023-04-28] MEDS: MELATONIN 3 MG TABLET PO SCH (20:21)
[2023-04-29] MEDS: MEROPENEM 1 GM in 0.9 % SODIUM CHLORIDE 50 ML IV SCH (05:54)
[2023-04-29] MEDS: INSULIN LISPRO 1 UNIT/0.01 ML UNIT SQ SCH ×2 (07:52→12:26)
[2023-04-29] MEDS: POLYETHYLENE GLYCOL 3350 17 GM PACKET PO SCH (07:56)
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
[2023-04-29] MEDS: APIXABAN 5 MG TABLET PO SCH (08:22)
[2023-04-29] MEDS: metFORMIN 500 MG TABLET PO SCH (08:22)
[2023-04-29] MEDS: METOPROLOL SUCCINATE 25 MG TAB.XL.24H PO SCH (08:22)
[2023-04-29] MEDS: MULTIVIT,THER IRON,CA,FA & MIN 1 TABLET PO SCH (08:22)
[2023-04-29] MEDS: THIAMINE 100 MG TABLET PO SCH (08:22)
[2023-04-29] MEDS: DOCUSATE SODIUM 100 MG CAPSULE PO SCH (08:24)
== END 2023-04-29 12:15 | DRG 853 ==
LOC: ED 11:18 → ICU 21:43 → MEDSUR 04-24 12:07
PROVIDERS: ADMIT Internal Medicine; ATTEND Internal Medicine